=== PATIENT | male | born 1975 | race Caucasian/White ===

== ENCOUNTER 2017-06-22 12:30 | Outpatient (RCR) | payer OTHER, SELFPAY ==
--- NOTE | 2017-05-29 14:11 | HP.PTEVAL_ITS ---
Patient's Visit Information SAUNDRA SAMUEL is a 41 year old M referred to Physical Therapy by Gio MEYERS with a diagnosis of LUMBAGO ,AFTER DISCECTOMY L5-S1. 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 Then Weds LUMBAR locked up while in bed. Seen Chiropractor. Location of pain symmtrical lumbar no leg pain. Denies parathesia/tingling. Bowel/bladder-. Coughing/ sneezing can increases symtoms. VOCATION: INSURANCE. SOCAIL: - Pain Bilateral Back Pain Intensity (Out of 10): 1 Pain Intensity Range: 10 - Objective POSTURE: WFL. GAIT: normal cydney ,reciprocal patterrn. NEURO: denies parathesia/tingling,reflexes L3-4,L4-5,L5-S1,MYTOMES intact. PALPATION: tender erector spinals. LUMBAR ROM: flexion min/mod loss,extension min/mod loss,side glides min loss. MMT: quads/hams/hip/ankle 5/5. FLEXABILITY: hams min tight. SYMMTRIES: align - Special Tests L/S Slump test left side: Negative L/S Slump test right side: Negative L/S Left Straight Leg Raise: Negative L/S Right Straight Leg Raise: Negative L/S Left Femoral Nerve Tension: Negative L/S Right Femoral Nerve Tension: Negative Lumbar Standing: Flexion - Mechanical Response: No effect Lumbar Standing: Flexion - Symptoms During Testing: Increases Lumbar Standing: Flexion - Symptoms After Testing: No worse Lumbar Standing: Extension - Mechanical Response: No effect Lumbar Standing: Extension - Symptoms During Testing: No effect Lumbar Standing: Extension - Symptoms After Testing: No effect Lumbar Standing: Right Side Glides - Mechanical Response: No effect Lumbar Standing: Right Side Enfield - Symptoms During Testing: No effect Lumbar Standing: Right Side [place] - Symptoms After Testing: No effect Lumbar Standing: Left Side [place] - Mechanical Response: No effect Lumbar Standing: Left Side [place] - Symptoms During Testing: No effect Lumbar Standing: Left Side [place] - Symptoms After Testing: No effect Lumbar Lying: Flexion - Mechanical Response: No effect Lumbar Lying: Flexion - Symptoms During Testing: No effect Lumbar Lying: Flexion - Symptoms After Testing: Better Lumbar Lying: Extension - Mechanical Response: No effect Lumbar Lying: Extension - Symptoms During Testing: Increases Lumbar Lying: Extension - Symptoms After Testing: No worse - Goals Goal 1:: Independant with HEP Goal Time Frame: 4-6 Weeks Goal 2:: Independant with posture/body mechanics Goal Time Frame: 4-6 Weeks Goal 3:: Decrease lumbar pain by 75% or greater to improve function with ADL'S , job demands Goal Time Frame: 4-6 Weeks Goal 4:: Patient to improve lumbar ROM for function of recovery Goal Time Frame: 4-6 Weeks Goal 5:: Patient be d/c to prophalaxis Goal Time Frame: 4-6 Weeks - Rehabilitation Potential Physical Therapy Diagnosis: Patient had episide lumbar pain from shoveling snow with h/o lumbar disectomy from extrusion disc L5-S1 NOVEMBER with current symptoms with pain ,loss of motion Rehabilitation Potential: Good - Anticipated Interventions Patient/Client Instruction: Educate patient on: Condition, Plan of Care For the Purpose of:: To decrease pain, To increase ROM, To improve muscle performance and motor function, To increase tolerance to activity/condition/ position, To improve ability of physical actions for home/community/work/leisure , To improve health of tissue, To decrease soft tissue restriction, To increase flexibility/ROM, To reduce risk of recurrence, To improve health and function, To prevent re-injury, To improve ability to perform tasks related to life management Therapeutic Exercise to Include: Strength training, Body mechanics, Postural training, Flexibilty training, Dynamic Lumbar Stabilization, [place] Exercises For the Purpose of:: To decrease pain, To increase ROM, To improve muscle performance and motor function, To improve ability to perform ADL's, To increase tolerance to activity/condition/position, To improve ability of physical actions for home/community/work/leisure, To improve health of tissue, To decrease soft tissue restriction, To reduce risk of recurrence, To improve health and function, To improve ability to perform tasks related to life management TENS: Yes IF ES: Yes Cryotherapy (ice pack, ice massage): Yes Thermo therapy (hot pack): Yes Ultrasound (thermal/non thermal): Yes For the Purpose of:: To decrease pain, To increase ROM, To improve nutrient delivery to tissue, To increase oxygenation perfusion, To improve health of tissue, To decrease soft tissue restriction Thank you for the opportunity to evaluate your patient. For Medicare and Medicare HMO plans, please review the plan of care and approve it. It will need to be FAXED BACK to us at [phone] for Medicare purposes. Please let me know if there are questions or concerns regarding this plan of care. Physician Signature: Date:
--- NOTE | 2017-06-22 14:04 | HP.PTDCSUM_ITS ---
HP - PT D/C Summary It has been my pleasure to treat SAUNDRA SAMUEL under orders from DR.CRANNE Basil for the diagnosis of LUMBAGO ,AFTER DISCECTOMY L5-S1 for a total of 7 visit(s). Discharge Date: 06/22/17 Please see the following information for a summary of their discharge status. - Subjective Subjective: Doing great ..no pain. Skiing no proplems - Pain Bilateral Back Pain Intensity (Out of 10): 0 - Objective Objective/Function: POSTURE: WFL. GAIT:NORMAL QUANG RECIPROCAL PATTERN. MMT : 5/5 LE. LUMBAR ROM: WNL -FLEXION/EXTENSION/SIDE GLIDES. -SLR - Goals Goal 1:: Independant with HEP Goal Progress: Goal Met Goal 2:: Independant with posture/body mechanics Goal Progress: Goal Met Goal 3:: Decrease lumbar pain by 75% or greater to improve function with ADL'S , job demands Goal Progress: Goal Met Goal 4:: Patient to improve lumbar ROM for function of recovery Goal Progress: Goal Met Goal 5:: Patient be d/c to prophalaxis Goal Progress: Goal Met - Plan Plan: D/C TO HEP - D/C Information Discharge Comments: HEP If there are questions or concerns regarding this patient's physical therapy, please feel free to call me at [phone]. Thank you for the referral of this patient. Sincerely, Michael Duran, PT,
== END 2017-06-22 19:00 | disposition home or self-care (01) ==
LOC: PT 12:30
PROVIDERS: Family Provider Family Medicine; PCP Family Medicine; Visit Provider Family Medicine
DX: M54.16 Radiculopathy, lumbar region (principal); M99.02 Segmental and somatic dysfunction of thoracic region; M99.03 Segmental and somatic dysfunction of lumbar region; M99.05 Segmental and somatic dysfunction of pelvic region
CPT/HCPCS: 97014; 97035; 97110; 97162; G0283

== ENCOUNTER → 2018-01-29 07:25 | Outpatient (CLI) | payer OTHER, SELFPAY ==
[2018-01-29 10:47] LABS: Anion Gap 7 (5-15); BUN 19 mg/dL (7-18); BUN/Creat Ratio 17.9 RATIO (10-20); Calcium,Total 8.9 mg/dL (8.5-10.1); Chloride 106 mmol/L (98-107); Cholesterol 193 mg/dL (200); Creatinine, Serum 1.06 mg/dL (0.70-1.30); EST Glomerular Filtration Rate 82 mL/min (>60); Est Glom Filt Rate - Afr Amer 99 mL/min (>60); Glucose 85 mg/dL (74-106); High Density Lipoprotein 56 mg/dL; Potassium 4.3 mmol/L (3.5-5.1); Sodium Level 143 mmol/L (136-145); Triglycerides 43 mg/dL; Very Low Density Lipoprotein 9 mg/dL (5-40)
== END ==
PROVIDERS: Family Provider Family Medicine; PCP Family Medicine; Visit Provider Family Medicine
DX: N05.8 Unspecified nephritic syndrome with other morphologic changes (principal); Z13.220 Encounter for screening for lipoid disorders
CPT/HCPCS: 36415; 80048; 80061

== ENCOUNTER → 2020-03-09 | Outpatient (CLI) | payer OTHER, SELFPAY | END | disposition home or self-care (01) | PROVIDERS: PCP Family Medicine; Visit Provider Family Medicine | DX: Z20.828 Contact with and (suspected) exposure to other viral communicable diseases (principal) | CPT/HCPCS: 87633; 87635; U0003 ==

== ENCOUNTER → 2022-10-01 | Outpatient (CLI) | payer OTHER, SELFPAY ==
[2022-10-01 10:22] LABS: Hematocrit 41.7 % (40-54); Hemoglobin 13.6 g/dL (13.0-16.5); Mean Corp Hgb Conc 32.6 g/dL (32-36); Mean Corpuscular Hgb 29.8 pg (27.0-32.0); Mean Corpuscular Volume 91.2 fL (80-94); Mean Platelet Vol. 9.8 fl (6.2-12.0); Platelet Count 276 K/mm3 (150-450); RBC Distribution Width CV 12.9 % (11.6-14.6); RBC Distribution Width SD 42.8 fl (35.1-43.9); Red Blood Count 4.57 M/mm3 (4.6-6.2); White Blood Count 4.4 K/mm3 (4.4-11.0)
[2022-10-01 10:42] LABS: AST(SGOT) 21 U/L (15-37); Alanine Aminotransfer ALT/SGPT 29 U/L (16-61); Albumin, Serum 3.8 g/dL (3.2-5.0); Alkaline Phosphatase 71 U/L (45-117); Anion Gap 8 (5-15); BUN 23 mg/dL (7-18); BUN/Creat Ratio 20.2 RATIO (10-20); Chloride 107 mmol/L (98-107); Cholesterol 179 mg/dL (200); Creatinine, Serum 1.14 mg/dL (0.70-1.30); EST Glomerular Filtration Rate 74 mL/min (>60); Est Glom Filt Rate - Afr Amer 89 mL/min (>60); Glucose 88 mg/dL (74-106); High Density Lipoprotein 71 mg/dL; Potassium 4.2 mmol/L (3.5-5.1); Protein, Total 7.8 g/dL (6.4-8.2); Sodium Level 140 mmol/L (136-145); Triglycerides 55 mg/dL; Very Low Density Lipoprotein 11 mg/dL (5-40)
== END | disposition home or self-care (01) ==
LOC: MFPLAB 08:13
PROVIDERS: PCP Family Medicine; Visit Provider Family Medicine
DX: Z00.00 Encounter for general adult medical examination without abnormal findings (principal); Z13.1 Encounter for screening for diabetes mellitus; Z13.220 Encounter for screening for lipoid disorders; E29.1 Testicular hypofunction
CPT/HCPCS: 36415; 80053; 80061; 84403; 85027

== ENCOUNTER → 2022-12-24 | Outpatient (CLI) | payer OTHER, SELFPAY ==
--- NOTE | 2022-12-24 15:37 | VDLE_ITS ---
Reason For Study: Pain Lt Calf RIGHT LEFT CFV is compressible, spontaneous, phasic, GSV is normal. competent and demonstrates normal CFV is compressible, spontaneous, phasic, augmentation. competent, and demonstrates normal Procedure augmentation. This is a venous duplex using B-mode, color FV is compressible, spontaneous, phasic, flow and spectral Doppler. competent and demonstrates normal Exam performed in department. augmentation. A preliminary report was called and/or faxed POP V is compressible, spontaneous, phasic, to Dr. Montiel. competent and demonstrates normal augmentation. T/P Trunk is compressible. PTV is compressible. LT PerV is compressible. Heterogeneous, non vascular structure noted from prox to distal calf measuring 6.37cm x 1.60cm (over area of pain and injury). VL/Venous Duplex US, Unilateral Interpretation Summary There is no evidence of left lower extremity deep vein thrombosis. Left great s aphenous vein appears patent and compressible segmentally. Heterogenous nonvascular structure from th e proximal to distal calf measuring 6.37 x 1.6 cm. Clinical correlation would be appropriate. Normal flow patterns right common femoral vein Ordering Physician: Gio Montiel Referring Physician: Gio Montiel Performed By: Yennifer Nava, EMMA, RVT
== END | disposition home or self-care (01) ==
PROVIDERS: PCP Family Medicine; Referring Provider Family Medicine; Visit Provider Family Medicine
DX: M79.662 Pain in left lower leg (principal)
CPT/HCPCS: 93971

== ENCOUNTER 2023-12-23 13:30 | Outpatient (RCR) | payer OTHER, SELFPAY ==
--- NOTE | 2023-12-08 10:38 | HP.PTEVAL_ITS ---
Patient's Visit Information Visit Information Visit Information: SAUNDRA SAMUEL is a 48 year old M referred to Physical Therapy by Dr. Gio Montiel MD with a diagnosis of STRAINOF MUSCLE/TENDON THE ROTATOR CUFF OF RIGHT ,IMPINGEMENT OF RIGHT SHOU. Date of Evaluation: 12/08/23 Physical Therapist: Michael Duran, PT, Cert MDT, OCS Visit Plan Frequency: 2x /Week Duration: 4 Weeks Plan: PT INTERVENTIONS RTC/SCAPULAR STRENGTHENING , ACTIVITIES MODIFICATIONS ,POSTURAL EX'S AND MODALTIES PRN Subjective Subjective: This 48 y/o male presents to physical therapy with right shoulder pain. Patient injury right shoulder skiing May 2023 . Noticed weakness and pain while lifting. Noticed pain lateral side . Seen DR De Jesus did MRI showed small tear supraspinatus. Patient has pain lateral deltoid . Patient sleeping good but feel some pain on right. Tried meloxicam. Patient has some limitations with ADLS . Initially seen Dr Montiel then recommended PT. Patient has limitations with working out. Patient goals workout with weights . SOCIAL: VOACTION: Insurance Pain Right Shoulder: Pain Intensity (Out of 10): 1 Pain Intensity Range: 10 Objective Objective: POSTURE: WFL PALAPTION: unremarkable NEURO: denies paresthesia/tingling AROM: shoulder flexion 160 degrees ,abduction 160 degrees ,ER 90 degrees IR T9 MMT: infraspinatus' 26.9 , supraspinatus 12.2,lateral deltoid 3.6 ,anterior deltoid 16.9 Special Tests R Shoulder External Rotation Lag Test - RC Tear: Negative R Shoulder Supine Impingement Test - RC Tear: Negative R Shoulder Drop Sign - IS Test: Negative R Shoulder Empty Can - SS: Positive R Shoulder Belly Press - SupScap: Negative R Shoulder Neer - Impingement: Negative R Shoulder Duarte Jorden - Impingement: Negative R Shoulder O'Briens - SLAP/A-C: Negative Balance/Special Test Scores Quick DASH Score: 18.1800 Goals Goal 1:: Patient to be I with HEP for shoulder Goal Time Frame: 4-6 Weeks Goal 2:: Patient to demonstrate by 70% improvement with to improve function Goal Time Frame: 4-6 Weeks Goal 3:: Patient to improve peak force supraspinatus and deltoid by 10-15# to improve function and lifting Goal Time Frame: 4-6 Weeks Goal 4:: Patient to improve ability to return to working out without limitations and sports Goal Time Frame: 4-6 Weeks Rehabilitation Potential Physical Therapy Diagnosis: This patient has right shoulder pain with supraspinatus tear mild with weakness and pain with certain activities es pecially lateral and lifting thus benefiT from skilled PT Rehabilitation Potential: Good Anticipated Interventions Patient/Client Instruction: Educate patient on: Condition and Plan of Care For the Purpose of:: To decrease pain, To decrease swelling/inflammation, To improve muscle performance and motor function, To increase tolerance to activity/condition/position, To decrease level of supervision to perform tasks, To improve health of tissue, To decrease soft tissue restriction and To increase flexibility/ROM Therapeutic Exercise to Include: Strength training, Postural training, Active ROM and Scapular Strength/Stabilization Comment: RTC For the Purpose of:: To decrease pain, To increase ROM, To improve muscle performance and motor function, To increase tolerance to activity/condition/position, To improve ability of physical actions for home/community/work/leisure, To improve health of tissue, To decrease soft tissue restriction, To increase flexibility/ROM and To improve tolerance to ADL's TENS: Yes IF ES: Yes Cryotherapy (ice pack, ice massage): Yes Thermo therapy (hot pack): Yes For the Purpose of:: To decrease pain, To improve nutrient delivery to tissue and To increase oxygenation perfusion Text: Thank you for the opportunity to evaluate your patient. For Medicare and Medicare HMO plans, please review the plan of care and approve it. It will need to be FAXED BACK to us at [phone] for Medicare purposes. For Medicare only, by signing this I certify the plan of care. Please let me know if there are questions or concerns regarding this plan of care. Physician Signature: Date:
--- NOTE | 2023-12-23 15:52 | HP.PTDCSUM ---
Discharge Summary D/C summary: It has been my pleasure to treat SAUNDRA SAMUEL referred by Dr. Gio Montiel MD, with the diagnosis of STRAINOF MUSCLE/TENDON THE ROTATOR CUFF OF RIGHT ,IMPINGEMENT OF RIGHT SHOU for a total of 3 visit(s). Discharge Date: 12/23/23 Please see the following information for a summary of their discharge status. Subjective Subjective: Doing good stronger no pain Pain Right Shoulder: Pain Intensity (Out of 10): 0 Overall Improvement % Improvement: 100 Objective Objective/Function: RTC PEAK FORCE INFRASPINATUS 35.4 SUPRASPINATUS 32.2 AROM: 160 degrees .160 degrees flexion ,ER DOING WELL Goals Goal 1:: Patient to be I with HEP for shoulder Goal Progress: Goal Met Goal 2:: Patient to demonstrate by 70% improvement with to improve function Goal Progress: Goal Met Goal 3:: Patient to improve peak force supraspinatus and deltoid by 10-15# to improve function and lifting Goal Progress: Goal Met Goal 4:: Patient to improve ability to return to working out without limitations and sports Goal Progress: Goal Met Goal Progress: Goal Met Plan Plan: D/C D/C Information Discharge Comments: D/C d/c sentence: If there are questions or concerns regarding this patient's physical therapy, please feel free to call me at [phone]. Thank you for the referral of this patient. Sincerely, Michael Duran PT, Cert MDT, OCS Balance/Gait/Functional tests Balance/Special Test Scores Quick DASH Score: 18.1800 Improvement % Improvement: 100
== END 2023-12-23 19:00 | disposition home or self-care (01) ==
LOC: PT 13:30
PROVIDERS: PCP Family Medicine; Referring Provider Family Medicine; Visit Provider Family Medicine
DX: S46.011D Strain of muscle(s) and tendon(s) of the rotator cuff of right shoulder, subsequent encounter (principal); M75.41 Impingement syndrome of right shoulder
CPT/HCPCS: 97110; 97162

== ENCOUNTER 2025-02-10 07:53 | Outpatient (CLI) | payer OTHER, SELFPAY ==
--- OUTSIDE RECORDS SUMMARY | 2025-02-10 08:16 | XMS RPT_ITS | CCD ---
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 Talat Montiel Primary Care Provider Dr. David Alvarez Attending Provider Dr. Talat Montiel Referring Provider MD Jude Hwang Attending Provider Gio Montiel Referring Unavailable Gio Montiel Primary Care Unavailable Jude Hwang Attending Unavailable Gio Montiel Referring Unavailable Gio Montiel Attending Unavailable Gio Montiel Primary Care Unavailable Medications Current Medications Medication Drug Class(es) Dates Sig (Normalized) Sig (Original) naproxen sodium 220 mg oral capsule (1 source) Nonsteroidal Anti-inflammatory Drug Start: 12-26-2022 take 1 capsule by mouth twice daily Naproxen Sodium (Aleve) 220 mg capsule Active 220 MG PO TWICE A DAY December 26, 2022 12:00am Problems Active Problems Problem Classification Problem Date Documented Da te Episodic/Chronic Other bone disease and musculoskeletal deformities (15 sources) Segmental and somatic dysfunction; Translations: [Segmental and somatic dysfunction of lumbar region] Onset: 10-16-2016 10-16-2016 Episodic Spondylosis; intervertebral disc disorders; other back problems (10 sources) Lumbar radiculopathy; Translations: [Radiculopathy, lumbar region] Onset: 10-16-2016 10-16-2016 Episodic Superficial injury; contusion (2 sources) Hematoma of lower limb; Translations: [Contusion of left lower leg, initial encounter] 12-26-2022 Episodic Past or Other Problems Problem Classification Problem Date Documented Da te Episodic/Chronic Other bone disease and musculoskeletal deformities (15 sources) Pelvic somatic dysfunction; Translations: [Segmental and somatic dysfunction] Onset: 10-16-2016 10-16-2016 Episodic Results Test Name Value Interpretation Reference Range Facility Inital Evaluation (1) - PTon 12-08-2023 Inital Evaluation (1) - PT [facility] [address] [place] [address] / REHABILITATION SERVICES INITIAL EVALUATION MR#: [id number] Acct: [id number] Name: SAUNDRA SAMUEL Rep #: [id number] : 1975 48 From: Doug Casillas PT. T, OCS Referring Dr.: Dr. Gio Montiel MD Status: REG RCR Insurance: [employer] [facility] PACKAGE PLAN Patient's Visit Information Visit Information Visit Information: SAUNDRA SAMUEL is a 48 year old M referred to Physical Therapy by Dr. Gio Montiel MD with a diagnosis of STRAINOF MUSCLE/TENDON THE ROTATOR CUFF OF RIGHT ,IMPINGEMENT OF RIGHT SHOU. Date of Evaluation: 12/08/23 Physical Therapist: Michael Duran PT, Cert T, OCS Visit Plan Frequency: 2x /Week Duration: 4 Weeks Plan: PT INTERVENTIONS RTC/SCAPULAR STRENGTHENING , ACTIVITIES MODIFICATIONS ,POSTURAL EX'S AND MODALTIES PRN Subjective Subjective: This 48 y/o male presents to physical therapy with right shoulder pain. Patient injury right shoulder skiing May 2023 . Noticed weakness and pain while lifting. Noticed pain lateral side . Seen DR De Jesus did MRI showed small tear supraspinatus. Patient has pain lateral deltoid . Patient sleeping good but feel some pain on right. Tried meloxicam. Patient has some limitations with ADLS . Initially seen Dr Montiel then recommended PT. Patient has limitations with working out. Patient goals workout with weights . SOCIAL: VOACTION: Insurance Pain Right Shoulder: Pain Intensity (Out of 10): 1 Pain Intensity Range: 10 Objective Objective: POSTURE: WFL PALAPTION: unremarkable NEURO: denies paresthesia/tinglin g AROM: shoulder flexion 160 degrees ,abduction 160 degrees ,ER 90 degrees IR T9 MMT: infraspinatus' 26.9 , supraspinatus 12.2,lateral deltoid 3.6 ,anterior deltoid 16.9 Special Tests R Shoulder External Rotation Lag Test - RC Tear: Negative R Shoulder Supine Impingement Test - RC Tear: Negative R Shoulder Drop Sign - IS Test: Negative R Shoulder Empty Can - SS: Positive R Shoulder Belly Press - SupScap: Negative R Shoulder Neer - Impingement: Negative R Shoulder Duarte Jorden - Impingement: Negative R Shoulder O'Briens - SLAP/A-C: Negative Balance/Special Test Scores Quick DASH Score: 18.1800 Goals Goal 1:: Patient to be I with HEP for shoulder Goal Time Frame: 4-6 Weeks Goal 2:: Patient to demonstrate by 70% improvement with to improve function Goal Time Frame: 4-6 Weeks Goal 3:: Patient to improve peak force supraspinatus and deltoid by 10-15# to improve function and lifting Goal Time Frame: 4-6 Weeks Goal 4:: Patient to improve ability to return to working out without limitations and sports Goal Time Frame: 4-6 Weeks Rehabilitation Potential Physical Therapy Diagnosis: This patient has right shoulder pain with supraspinatus tear mild with weakness and pain with certain activities especially lateral and lifting thus benefiT from skilled PT Rehabilitation Potential: Good Anticipated Interventions Patient/Client Instruction: Educate patient on: Condition and Plan of Care For the Purpose of:: To decrease pain, To decrease swelling/inflammati on, To improve muscle performance and motor function, To increase tolerance to activity/condition/ position, To decrease level of supervision to perform tasks, To improve health of tissue, To decrease soft tissue restriction and To increase flexibility/ROM Therapeutic Exercise to Include: Strength training, Postural training, Active ROM and Scapular Strength/Stabilizat ion Comment: RTC For the Purpose of:: To decrease pain, To increase ROM, To improve muscle performance and motor function, To increase tolerance to activity/condition/ position, To improve ability of physical actions for home/community/work /leisure, To improve health of tissue, To decrease soft tissue restriction, To increase flexibility/ROM and To improve tolerance to ADL's TENS: Yes IF ES: Yes Cryotherapy (ice pack, ice massage): Yes Thermo therapy (hot pack): Yes For the Purpose of:: To decrease pain, To improve nutrient delivery to tissue and To increase oxygenation perfusion Text: Thank you for the opportunity to evaluate your patient. For Medicare and Medicare HMO plans, please review the plan of care and approve it. It will need to be FAXED BACK to us at [phone] for Medicare purposes. For Medicare only, by signing this I certify the plan of care. Please let me know if there are questions or concerns regarding this plan of care. Physician Signature: __Date: 12/08/23 1213 CC: Dr. Gio Montiel MD TEOFILO Signed Normal [facility] Orthopedic Visit Reporton Orthopedic Visit Report [facility] [address] [place] [address] OFFICE VISIT Date of Service: 12/26/22 MR#: [id number] Acct: [id number] Name: SAUNDRA SAMUEL Rep #: [id number] : 1975 Provider: Dr. Jude caldwell MD Age/Sex: 47/M Location: [email or web address].[email or web address] Status: Signed Intake Intake Visit Reasons: LEFT CALF Is patient in pain?: Yes Pain scale (1-10): 1 Allergies No Known Allergies Allergy (Verified 12/26/22 13:15) Medications naproxen sodium 220 mg capsule (Aleve) 220 mg PO BID PRN 12/26/22 [History Confirmed 12/26/22] PFSH Medical History (Updated 12/26/22 @ 13:48 by Jude Hwang MD) Hematoma of left lower extremity Surgical History (Updated 12/26/22 @ 13:18 by Briseida Nickerson) H/O lateral meniscus repair of right knee History of microdiscectomy Social History (Updated 12/26/22 @ 13:19 by Briseida Nickerson) Smoking Status: Never smoker alcohol intake: current alcohol intake frequency: a few times a week HPI LEFT CALF Details: Parts of this documentation were recorded by a scribe, this documentation accurately reflects the service provided and the decisions made by me, Dr. Jude Hwang MD 12/26/22 1864. SAUNDRA SAMUEL is a 47 year old M here today for left calf hematoma. The patient was playing pickle ball about 2 weeks ago was going bending over for shot there is a pop and pain and swelling. He has been trying some compression crutches and anti-inflammatories every day. He works from home for [employer]. No fevers chills redness drainage. It felt better after a week he went back to his normal activities and felt again pretty sore saw his family doctor Tiana who wanted to get him in to see if it should be drained. Ortho Exam General General: Yes no acute distress Neurologic: Yes alert and Yes oriented x3 Psychologic: Yes reasonable and appropriate Left Foot/Ankle Skin: Yes Soft Tissue Swelling; No Ecchymosis or Erythema Exam: Yes Soft tissue swelling, eversion normal and inversion normal; No Ecchymosis, Erythema, TTP Lateral Malleolus, TTP ATFL, TTP Lisfranc Joint, TTP distal 5th metatarsal, TTP Retrocalcaneal bursa, TTP Peroneal or peroneal snapping Compartments: soft Dorsiflexion 0-20: 5 degrees Plantar Flexion 0-40: 40 degrees ROM: Yes pain with range of motion Tests: Jordan Test: 1 and Squeeze Test: 1 Motor: Ankle Dorsiflextion: 5, Ankle Plantar Flexion: 5, Ankle Eversion: 5, Ankle Inversion: 5 and EHL: 5 Sensation: Deep Peroneal Nerve: I, Superficial Peroneal Nerve: I, Tibial Nerve: I, Sural Nerve: I and Saphenous Nerve: I Pulses: Dorsalis Pedis: 2 and Posterior Tibial: 2 ANKLE: Calf is closed. There is moderate swelling and pain especially at the medial gastroc slight bruising there only slight pain with forced dorsiflexion compartments are overall soft. Normal sensation throughout the foot foot is warm and well-perfused. Supplemental Info [facility] [place] [address] Venous Duplex US, Unilateral 12/24/22 1543 MR#: [id number] Acct: [id number] Name: SAUNDRA SAMUEL Rep #: [id number] : 1975 47 From: David Alvarez MD Attending Dr: Dr. Talat Montiel MD Status: REG CLI Ordering Dr: Talat Montiel MD Date: 12/24/22 Location: [facility] Sex: M C Admitted: Reason For Study: Pain Lt Calf RIGHT LEFT CFV is compressible, spontaneous, phasic, GSV is normal. competent and demonstrates normal CFV is compressible, spontaneous, phasic, augmentation. competent, and demonstrates normal Procedure augmentation. This is a venous duplex using B-mode, color FV is compressible, spontaneous, phasic, flow and spectral Doppler. competent and demonstrates normal Exam performed in department. augmentation. A preliminary report was called and/or faxed POP V is compressible, spontaneous, phasic, to Dr. Montiel. competent and demonstrates normal augmentation. T/P Trunk is compressible. PTV is compressible. LT PerV is compressible. Heterogeneous, non vascular structure noted from prox to distal calf measuring 6.37cm x 1.60cm (over area of pain and injury). VL/Venous Duplex US, Unilateral Interpretation Summary There is no evidence of left lower extremity deep vein thrombosis. Left great saphenous vein appears patent and compressible segmentally. Heterogenous nonvascular structure from the proximal to distal calf measuring 6.37 x 1.6 cm. Clinical correlation would be appropriate. Normal flow patterns right common femoral vein (more content not included)... Normal [facility] Basophil percentageOrdered B y: Talat Montiel on 10-01-2022 Bilirubin [Mass/Vol] 0.70 mg/dL 0.20-1.00 [facility] [place] Comment on above: For patients on eltr ombopag therapy, use of Dimension [place] TBIL is not recommended. Chloride [Moles/Vol] 107 mmol/L 98-107 [facility] [place] Cholesterol [Mass/Vol] 179 mg/dL <200 [facility] Comment on above: <200 mg/dL Desirable 200-240 mg/dL Borderline >240 mg/dL High Risk Glucose [Mass/Vol] 88 mg/dL 74-106 [facility] Potassium [Moles/Vol] 4.2 mmol/L 3.5-5.1 [facility] Protein [Mass/Vol] 7.8 g/dL 6.4-8.2 [facility] Sodium [Moles/Vol] 140 mmol/L 136-145 [facility] Testosterone [Mass/Vol] 507.60 ng/dL [facility] Comment on above: CENTRAL 90% REFERENC E RANGES MALE AGE <50 197.44 - 669.58 ng/dL MALE AGE > or = 50 187.72 - 684.19 ng/dL FEMALE AGE <50 8.38 - 35.01 ng/dL FEMALE AGE > or = 50 <7.00 - 35.92 ng/dL Effective as of 12/11/20 Triglyceride [Mass/Vol] 55 mg/dL <199 [facility] Comment on above: The drugs N-Acetylcy steine and Metamizole may falsely depress this assay.Serum Triglycerides Reference Interval Normal <150 mg/dL Borderline high 150 - 199 mg/dL High 200 - 499 mg/dL Very High > or = 500 mg/dL WBC (Bld) [#/Vol] 4.4 10*3/uL 4.4-11.0 [facility] Blood erythrocytes count (nu mber/volume)Ordered By: Talat Montiel on 10-01-2022 RBC (Bld) [#/Vol] 4.57 10*6/uL 4.6-6.2 [facility] Blood hemoglobin measurement (mass/volume)Ordered By: Talat Montiel on 10-01-2022 Hemoglobin (Bld) [Mass/Vol] 13.6 g/dL 13.0-16.5 [facility] Blood platelet mean volumeOr dered By: Talat Montiel on 10-01-2022 Platelet mean volume (Bld) [Entitic vol] 9.8 fL 6.2-12.0 [facility] Determination of erythrocyte mean corpuscular volume (MCV)Ordered By: Talat Montiel on 10-01-2022 MCV (RBC) [Entitic vol] 91.2 fL 80-94 [facility] Hematocrit Auto (Bld) [Volum e fraction]Ordered By: Talat Montiel on 10-01-2022 Hematocrit (Bld) [Volume fraction] 41.7 % 40-54 [facility] Laboratory - Chemistry and C hemistry - challengeOrdered By: Talat Montiel on 10-01-2022 ALP [Catalytic activity/Vol] 71 U/L 45-117 [facility] ALT [Catalytic activity/Vol] 29 U/L 16-61 [facility] CO2 [Moles/Vol] 25.0 mmol/L 21.0-32.0 [facility] Globulin (S) [Mass/Vol] 4.0 g/dL 2.2-4.2 [facility] Urea nitrogen/Creatinine [Mass ratio] 20.2 mg/mg 10-20 [facility] - Hematology and Cell countsOrdered By: Talat Montiel on 10-01-2022 Erythrocyte distribution width (RBC) [Entitic vol] 42.8 fL 35.1-43.9 [facility] Erythrocyte distribution width (RBC) [Ratio] 12.9 % 11.6-14.6 [facility] MCH (RBC) [Entitic mass] 29.8 pg 27.0-32.0 [facility] MCHC Auto (RBC) [Mass/Vol]Or dered By: Talat Montiel on 10-01-2022 MCHC (RBC) [Mass/Vol] 32.6 g/dL 32-36 [facility] No Panel InformationOrdered By: Talat Montiel on 10-01-2022 Estimated GFR (MDRD) Amer 89 mL/min >60 [facility] Comment on above: GFR Calc Estimated GFR (MDRD) Non-Af Amer 74 mL/min >60 [facility] Comment on above: Non- GFR Calc Platelets bldOrdered By: Spencer Montiel on 10-01-2022 Platelets (Bld) [#/Vol] 276 10*3/uL 150-450 [facility] Serum or plasma albumin karli urement (mass/volume)Ordered By: Talat Montiel on 10-01-2022 Albumin [Mass/Vol] 3.8 g/dL 3.2-5.0 [facility] Serum or plasma albumin/glob ulin mass ratioOrdered By: Talat Montiel on 10-01-2022 Albumin/Globulin [Mass ratio] 1.0 {ratio} 0.9-2.4 [facility] Serum or plasma calcium karli urement (mass/volume)Ordered By: Talat Montiel on 10-01-2022 Calcium [Mass/Vol] 9.0 mg/dL 8.5-10.1 [facility] Serum or plasma cholesterol in HDL measurement (mass/volume)Ordered By: Talat Montiel on 10-01-2022 Cholesterol in HDL [Mass/Vol] 71 mg/dL >40 [facility] Comment on above: The drugs N-Acetylcy steine and Metamizole may falsely depress this assay. Reference Range HDL <40 mg/dL Low HDL Cholesterol HDL >or= 60 mg/dL High HDL Cholesterol Serum or plasma cholesterol in VLDL measurement (mass/volume)Ordered By: Talat Montiel on 10-01-2022 Cholesterol in VLDL [Mass/Vol] 11 mg/dL 5-40 [facility] Serum or plasma creatinine m easurement (mass/volume)Ordered By: Talat Montiel on 10-01-2022 Creatinine [Mass/Vol] 1.14 mg/dL 0.70-1.30 [facility] Comment on above: The validity of the calculated GFR & GFRAA in patients over 70 years has not been determined. Clinical correlation is essential. Serum or plasma low density lipoprotein (LDL) cholesterol measurement (mass/volume)Ordered By: Talat Montiel on 10-01-2022 Cholesterol in LDL [Mass/Vol] 97 mg/dL 0-130 [facility] Serum or plasma urea nitroge n measurement (mass/volume)Ordered By: Talat Montiel on 10-01-2022 Urea nitrogen [Mass/Vol] 23 mg/dL 7-18 [facility] Thin prep Papanicolaou smear with manual screeningOrdered By: Talat Montiel on 10-01-2022 Thin prep Papanicolaou smear with manual screening 21 U/L 15-37 [facility] Thin prep Papanicolaou smear with manual screening 8 5-15 [facility] [id number] 01-19-2021 Date of Onset [id number] Invalid Interpretation Code [facility] ([place]) Comment on above: Performed By: #### C OVD19 #### [place] [address] Employed in Healthcare Unknown [facility] ([place]) Comment on above: Performed By: #### C OVD19 #### [facility] [address] [place] [id number] First Test Unknown [facility] ([place]) Comment on above: Performed By: #### C OVD19 #### [facility] [address] [place] [address] Hospitalized No [facility] ([place]) Comment on above: Performed By: #### C OVD19 #### [place] [address] ICU No [facility] ([place] Comment on above: Performed By: #### C OVD19 #### [place] [address] Not [facility] ([place] Comment on above: Performed By: #### C OVD19 #### [place] [address] Resides in Congregate Care Setting No [facility] ([place] Comment on above: Performed By: #### C OVD19 #### [place] [address] SARS-CoV-2 (COVID-19) RNA MICHAEL+probe Ql (Unsp spec) Negative Normal Negative [facility] ([place]) Comment on above: Performed By: #### C OVD19 #### [place] [address] SARS-CoV-2 (COVID-19) RNA MICHAEL+probe Ql (Unsp spec) Normal [facility] ([place]) Comment on above: Result Comment: Nega tive results do not preclude SARS-CoV-2 infection and should not be used as the sole basis for patient management decisions. Negative results must be combined with clinical observations, patient history, and epidemiological information. There is a risk of false negative values resulting from improperly collected, transported, or handled specimens. There is a risk of false negative values due to the presence of sequence variants in the pathogen targets of the assay, procedural errors, amplification inhibitors in specimens, or inadequate numbers of organisms for amplification. BUDDY SARS-CoV-2 Assay is a Real-Time reverse-transcriptase polymerase chain reaction (RT-PCR) based qualitative in vitro diagnostic test intended for the qualitative detection of nucleic acid from the SARS-CoV-2 in nasopharyngeal swab specimens collected from individuals suspected of COVID-19 by their healthcare provider. Testing is limited to laboratories certified under the Clinical Laboratory Improvement Amendments of 1988 (CLIA), 42 U.S.C. ?263a, to perform moderate and high complexity tests. COVID-19 Int Performed By: #### C OVD19 #### [address] [address] Symptomatic as Defined by [facility] No Normal [facility] ([place]) Comment on above: Performed By: #### C OVD19 #### [address] [address] Office Visit: Spine Visit- R sided low back painon 11-04-2016 Documentation of current medications (procedure) Done Invalid Interpretation Code [facility] Work Phone: Documentation of current medications (procedure) T Invalid Interpretation Code [facility] Work Phone: Protein mass conc Done [facility] Work Phone: Protein mass conc T [facility] Work Phone: Office Visit: Spine Visit- R low back painon 11-03-2016 Protein mass conc Done [facility] Work Phone: Protein mass conc T [facility] Work Phone: Office Visit: Spine Visit- R lower back painon 10-22-2016 Protein mass conc Done [facility] Work Phone: Protein mass conc T [facility] Work Phone: Office Visit: Right lower ba ck painon 10-20-2016 Alcoholism counseling (procedure) no Invalid Interpretation Code [facility] Work Phone: Documentation of current medications (procedure) Done Invalid Interpretation Code [facility] Work Phone: Documentation of current medications (procedure) T Invalid Interpretation Code [facility] Work Phone: Protein mass conc no [facility] Work Phone: Tobacco smoking status NHIS Never Invalid Interpretation Code [facility] Work Phone: Tobacco smoking status NHIS Never smoker [facility] Work Phone: Tobacco use [facility] Never smoker Invalid Interpretation Code [facility] Work Phone: Office Visit: Spine Visit- N EWon 10-16-2016 Alcoholism counseling (procedure) no Invalid Interpretation Code [facility] Work Phone: Documentation of current medications (procedure) Done Invalid Interpretation Code [facility] Work Phone: Documentation of current medications (procedure) T Invalid Interpretation Code [facility] Work Phone: Tobacco smoking status NHIS Never Invalid Interpretation Code [facility] Work Phone: Tobacco smoking status NHIS Never smoker [facility] Work Phone: Tobacco use [facility] Never smoker Invalid Interpretation Code [facility] Work Phone: Vital Signs Date Time Vital Sign Value Performing Clinician Facility 10-16-2016 09:47-0400 BMI (Body Mass Index) 25.54 kg/m2 [facility] Work Phone: 10-16-2016 09:47-0400 Body weight 80.74 kg [facility] Work Phone: 10-16-2016 09:47-0400 Height 177.8 cm [facility] Work Phone: 10-16-2016 09:47-0400 Pulse (Heart Rate) 85 /min [facility] Work Phone: 10-16-2016 09:47-0400 Respiratory Rate 18 /min Cheyenne Simon [facility] Work Phone: 10-16-2016 09:47-0400 Weight 80.74 kg Penelope Singh DC [facility] Work Phone: Encounters Encounter Date Encounter Type Care Provider Facility Start: 12-23-2023 ambulatory Gio Montiel Faci lity:[facility] Start: 12-26-2022 End: 12-26-2022 ambulatory Gio Montiel Facility:[facility] Start: 12-26-2022 End: 12-26-[address] Talat Montiel Work Phone: [facility] Work Phone: Start: 12-24-2022 Non-patient / Non-visit Dr. Talat Montiel Work Phone: [facility] Start: 12-24-2022 End: 12-24-[address] Tlaat Montiel Work Phone: [facility] Work Phone: Start: 12-24-2022 End: 12-24-[address] Talat Montiel Work Phone: [facility] Work Phone: Start: 10-01-2022 End: 10-01-[address] Talat Montiel Work Phone: [facility] Procedures Date Procedure Procedure Detail Performing Clinician Start: 11-04-2016 End: 11-04-2016 Chiropract manj 1-2 regions Penelope Burch Haresh i DC Work Phone: Start: 11-04-2016 End: 11-04-2016 Mechanical traction therapy Penelope Burch Haresh i DC Work Phone: Start: 11-03-2016 End: 11-03-2016 Chiropractic manipulation Penelope Singh DC Work Phone: Start: 11-03-2016 End: 11-03-2016 Mechanical traction therapy Penelope B Haresh i DC Work Phone: Start: 10-22-2016 End: 10-22-2016 Documentation of current medications Penelope Dossi DC Start: 10-22-2016 End: 10-22-2016 Chiropractic manipulation Penelope B Dossi DC Work Phone: Start: 10-22-2016 End: 10-22-2016 Electric stimulation therapy Penelope B Dossi DC Work Phone: Start: 10-22-2016 End: 10-22-2016 Mechanical traction therapy Penelope B Haresh i DC Work Phone: Start: 10-21-2016 End: 10-21-2016 Documentation of current medications Penelope Dossi DC Start: 10-21-2016 End: 10-21-2016 Chiropractic manipulation Penelope B Dossi DC Work Phone: Start: 10-21-2016 End: 10-21-2016 Mechanical traction therapy Penelope B Haresh i DC Work Phone: Start: 10-20-2016 End: 10-20-2016 Alcoholism counseling Penelope Dossi DC Start: 10-20-2016 End: 10-20-2016 Chiropractic manipulation Penelope B Dossi DC Work Phone: Start: 10-20-2016 End: 10-20-2016 Mechanical traction therapy Penelope B Haresh i DC Work Phone: Start: 10-20-2016 End: 10-20-2016 Therapeutic exercises Penelope B Dossi DC Work Phone: Start: 10-16-2016 End: 10-16-2016 Alcoholism counseling Cheyenne Simon Start: 10-16-2016 End: 10-16-2016 Documentation of current medications Cheyenne Simon Start: 10-16-2016 End: 10-16-2016 Chiropractic manipulation Penelope B Dossi DC Work Phone: Start: 10-16-2016 End: 10-16-2016 Electric stimulation therapy Penelope B Dossi DC Work Phone: Start: 10-16-2016 End: 10-16-2016 Mechanical traction therapy Penelope Hutson i DC Work Phone: Start: 10-16-2016 End: 10-16-2016 X-ray exam of lower spine Penelope Singh DC Work Phone: Plan of Treatment Date Care Activity Detail Author Start: 11-04-2016 End: 11-04-2016 Appointment Appointment [facility] Work Phone: Start: 11-04-2016 End: 11-04-2016 Follow up Appt 3x/week Follow up Appt 3x/week [facility] Work Phone: Start: 11-04-2016 End: 11-04-2016 Mri lumbar spine w/o dye MRI Lumbar Spine [facility] Work Phone: Start: 11-03-2016 End: 11-03-2016 Appointment Appointment [facility] Work Phone: Start: 11-03-2016 End: 11-03-2016 Follow up Appt 3x/week Follow up Appt 3x/week [facility] Work Phone: Start: 10-22-2016 End: 10-22-2016 Appointment Appointment [facility] Work Phone: Start: 10-22-2016 End: 10-22-2016 Follow up Appt 3x/week Follow up Appt 3x/week [facility] Work Phone: Start: 10-21-2016 End: 10-21-2016 Appointment Appointment [facility] Work Phone: Start: 10-21-2016 End: 10-21-2016 Follow up Appt 3x/week Follow up Appt 3x/week [facility] Work Phone: Start: 10-20-2016 End: 10-20-2016 Appointment Appointment [facility] Work Phone: Start: 10-20-2016 End: 10-20-2016 Appointment Appointment [facility] Work Phone: Start: 10-20-2016 End: 10-20-2016 Follow up Appt 3x/week Follow up Appt 3x/week [facility] Work Phone: Start: 10-16-2016 End: 10-16-2016 Appointment Appointment [facility] Work Phone: Payers Date Payer Category Payer Unknown [id number] 2022 Self-pay [id number] 2004 Unknown [id number] Unknown [id number] Unknown [id number] Social History Date Type Detail Facility Start: 12[facility]26-2022 [facility] Start: 1975 Sex Assigned At Male [facility] Goals Date Patient Goal Desired Activity /State Evaluation note Note Date & Type Note Facility Evaluation note Diagnosis Onset Date Hematoma of left lower extremity acute [facility] Work Phone: Summary Purpose Family History No Family History Records FoundNo Family History Records Found Advance Directives No Advanced Directives Records FoundNo Advanced Directives Records Found Chief Complaint and Reason for Visit Chief Complaint PAIN OF LEFT CALF LEFT CALF Reason for Visit Hematoma of left low er extremity Additional Source Comments (unrecognized sect ion and content) No Status Records FoundNo Status Records Found INFORMATION SOURCE (unrecogn ized section and content) DATE CREATED AUTHOR 01/20/2021 [employer] ([place]) DATE CREATED AUTHOR AUTHOR'S ORGANIZ ATION 12/26/2023 [facility] Care Teams (unrecognized sec tion and content) Team Status: Active Member Role Status Dates Dr. Talat Montiel MD Family Provider Active Dr. Talat Montiel MD Primary Care Provider Activ e Team Status: Active Member Role Status Dates Dr. Talat Montiel MD Primary Care Provider Activ e Dr. David Alvarez MD Attending Provider Active Team Status: Inactive Member Role Status Dates Dr. Talat Montiel MD Primary Care Provider, Refe rring Provider Active Jude Hwang MD Attending Provider Active Team Status: Inactive Member Role Status Dates Dr. Talat Montiel MD Primary Care Provider, Atte nding Provider Active Team Status: Inactive Member Role Status Dates Dr. Talat Montiel MD Primary Care Provider, Attending Provider, Referring Provider Active FOR RECORDS PERTAINING TO PATIENTS WHO ARE OR HAVE BEEN ENROLLED IN A CHEMICAL DEPENDENCY/SUBSTANCEABUSE PROGRAM, SOME INFORMATION MAY BE OMITTED. This clinical summary was aggregated from multiple sources. Caution should be exercised in using it in the provision of clinical care. This summary normalizes information from multiple sources, and as a consequence, information in this document may materially change the coding, format and clinical context of patient data. In addition, data may be omitted in some cases. CLINICAL DECISIONS SHOULD BE BASED ON THE PRIMARY CLINICAL RECORDS. [facility] [employer] provides no warranty or guarantee of the accuracy or completeness of information in this document.
[2025-02-10 10:54] LABS: Anion Gap 13 (5-15); BUN 20 mg/dL (4-19); BUN/Creat Ratio 16.1 RATIO (10-20); Calcium,Total 9.2 mg/dL (7.6-11.0); Carbon Dioxide 22.6 mmol/L (21.0-32.0); Chloride 104 mmol/L (98-108); Cholesterol 200 mg/dL (<=200); Glucose 92 mg/dL (70-99); Low Density Lipoprotein Calc. 115 mg/dL; Potassium 4.3 mmol/L (3.3-5.1); Triglycerides 46 mg/dL; Very Low Density Lipoprotein 9 mg/dL (5-40); cholesterol:hdl ratio screen 2.64
== END 2025-02-10 23:59 | disposition home or self-care (01) ==
LOC: MTLAB 07:54
PROVIDERS: PCP Family Medicine; Referring Provider Family Medicine; Visit Provider Family Medicine
DX: Z13.1 Encounter for screening for diabetes mellitus (principal); Z13.220 Encounter for screening for lipoid disorders
CPT/HCPCS: 36415; 80048; 80061; 84403